=== PATIENT | male | born 1995 | race Caucasian/White ===

== ENCOUNTER 2018-09-18 17:18 | Emergency (ER) | payer BC ==
[~2018-09-18] VITALS: Ht 182.8 cm; Wt 63.5 kg
--- NOTE | ~2018-09-18 | EKG ---
[place], [place] ELECTROCARDIOGRAM REPORT NAME: JOHANA ANDERSON UNIT #: [id number] ROOM: DOCTOR: EPIPHANY DRAFT REPORT BIRTHDATE: [birth year] [facility] Test Date: 2018-09-18 Test Time: 18:14:45 Pat Name: JOHANA ANDERSON Department: Room: Gender: Member Of Congress: Hema Herrmann : 1995 Requested By: SENDY ACKERMAN Order Number: [id number] Reading MD: Scott Green MD Measurements Intervals [place] Rate: 61 P: 52 HI: 140 QRS: 76 QRSD: 82 T: 52 QT: 386 QTc: 389 Interpretive Statements Sinus rhythm Electronically Signed On 09-19-2018 9:50:56 PST by Scott Green MD CM:[email or web address]:ELECTROCARDIOGRAM REPORT 1814 0950 SENDY DODSON DRAFT REPORT SENDY ACKERMAN DO
[~2018-09-18 17:18] MED LIST: MOTRIN400 MG PO; MOTRIN800 MG PO; NKHM
[2018-09-18 18:15] LABS: BASO % 0.6 % (0.0-1.0); EOS # 0.1 10*3/uL (0.0-0.4); EOS % 2.2 % (1.0-4.0); HEMATOCRIT 45.1 % (42.0-52.0); HEMOGLOBIN 15.5 g/dl (14.0-18.0); LYMPH # 2.2 10*3/uL (1.3-4.4); LYMPH % 34.6 % (27.0-41.0); MEAN CELL VOLUME 88.8 fl (80.0-94.0); MEAN CORPUSCULAR HGB 30.5 pg (27.0-31.0); MEAN CORPUSCULAR HGB CONC 34.4 g/dl (33.0-37.0); MEAN PLATELET VOLUME 9.9 fl (9.6-12.3); MONO # 0.5 10*3/uL (0.1-1.0); MONO % 8.7 % (3.0-9.0); NEUT # 3.4 10*3/uL (2.3-7.9); NEUT % 53.7 % (47.0-73.0); PLATELET COUNT AUTOMATED 241 10*3/uL (130-400); RED BLOOD COUNT 5.08 10*6/uL (4.50-5.90); RED CELL DISTRI WIDTH 12.8 % (0-14.5); WHITE BLOOD COUNT 6.2 10*3/uL (4.8-10.8)
[2018-09-18 18:27] LABS: ACT PARTIAL THROMBO TIME 25.6 SECONDS (20.8-31.5)
[2018-09-18 18:46] LABS: ALBUMIN 3.9 gm/dl (3.1-4.5); ALKALINE PHOSPHATASE 96 U/L (45-117); BUN 12 mg/dl (7-24); CHLORIDE 106 mmol/L (98-107); CREATININE 1.03 mg/dL (0.70-1.30); PHOSPHOROUS 3.3 mg/dL (2.5-4.9); POTASSIUM 4.1 mmol/L (3.5-5.1); SGOT/AST 14 IU/L (3-35); SGPT/ALT 20 U/L (12-78); SODIUM 141 mmol/L (136-145); TOTAL PROTEIN 7.4 gm/dL (6.4-8.2)
[2018-09-18 18:47] LABS: BILIRUBIN NEGATIVE (NEGATIVE); BLOOD NEGATIVE (NEGATIVE); CLARITY CLOUDY (CLEAR); COLOR YELLOW (YELLOW); GLUCOSE NEGATIVE (NEGATIVE); KETONE NEGATIVE (NEGATIVE); LEUKO ESTERASE NEGATIVE (NEGATIVE); NITRITE NEGATIVE (NEGATIVE); SPECIFIC GRAVITY 1.015 (1.005-1.030); UROBILINOGEN 0.2 E.U./dl (0.2-1.0)
[2018-09-18 18:48] LABS: ETHYL ALCOHOL < 3.0 mg/dl (<3); TROPONIN I < 0.015 ng/ml (<0.045)
[2018-09-18 18:58] LABS: BACTERIA 4+; EPITHELIAL CELLS 0-2; MUCOUS TRACE; RBC 0-2 rbc/hpf (0-2)
[2018-09-18 19:01] LABS: URINE AMPHETAMINES < 1000 (1000ng/ml); URINE BARBITURATES < 200 (200ng/ml); URINE BENZODIAZEPINES < 200 (200ng/ml); URINE CANNABINOIDS (THC) < 50 (50ng/ml); URINE COCAINE < 300 (300ng/ml); URINE METHADONE < 300 (300ng/ml); URINE OPIATES < 300 (300ng/ml)
[2018-09-18 19:03] LABS: URINE PHENCYCLIDINE < 25 (25ng/ml)
== END 2018-09-18 22:06 | disposition home or self-care (01) ==
LOC: ED 17:18
PROVIDERS: Family Medicine
DX: F41.9 Anxiety disorder, unspecified (principal); F32.9 Major depressive disorder, single episode, unspecified; R45.851 Suicidal ideations; R79.1 Abnormal coagulation profile